=== PATIENT | female | born 1980 ===

== ENCOUNTER 2019-09-19 06:17 | Day surgery (SDC) | payer OTHER | END 2019-09-19 10:44 | disposition home or self-care (01) | LOC: AMB-ENDOS 06:17 | DX: D13.1 Benign neoplasm of stomach (principal); K44.9 Diaphragmatic hernia without obstruction or gangrene ==

== ENCOUNTER 2024-08-08 12:00 | Inpatient (IN) | payer OTHER ==
[~2024-08-08] VITALS: Ht 160 cm; Wt 72.6 kg
[2024-08-08 12:20] LABS: RH POSITIVE
[2024-08-08] MEDS ORDERED: SKYRIZI150 MG/1 M (12:47)
[2024-08-12] MEDS ORDERED: POVIDONE-IODINE 118 ML BOTT TOP SCH (11:45)
[2024-08-12] MEDS ORDERED: CEFAZOLIN SODIUM 1,000 MG VIAL IV SCH ×2 (11:45→18:00)
[2024-08-12] MEDS ORDERED: ONDANSETRON HCL 2 MG/ML VIAL IV PRN (14:00)
[2024-08-12] MEDS ORDERED: MORPHINE SULFATE 4 MG/ML VIAL IV ONE (14:20)
[2024-08-12] MEDS ORDERED: MORPHINE SULFATE 4 MG/ML VIAL IV SCH (16:00)
[2024-08-12] MEDS ORDERED: MORPHINE SULFATE 2 MG,MORPHINE SULFATE 4 MG IV SCH (16:00)
[2024-08-12 16:30] VITALS: BP 125/80
[2024-08-12 19:12] LABS: HEMATOCRIT 34.6 % (36.0-45.00); HEMOGLOBIN 11.5 g/dL (12.0-15.00); MEAN CELL VOLUME 85.5 fL (80.00-100.00); MEAN CORPUSCULAR HEMOGLOBIN 28.5 pg (27.00-32.0); MEAN CORPUSCULAR HGB CONC 33.3 g/dl (32.0-36.0); PLATELET COUNT 313 K/uL (150-450); RED BLOOD COUNT 4.04 M/uL (4.00-6.00); RED CELL DISTRIBUTION WIDTH 16.8 % (11.5-14.5)
[2024-08-13 01:18] VITALS: BP 118/74
[2024-08-13 07:50] VITALS: BP 116/71
[2024-08-13] MEDS ORDERED: IBU800 MG PO (08:13)
[2024-08-13] MEDS ORDERED: NEURONTIN300 MG PO (08:14)
[2024-08-13] MEDS ORDERED: ENOXAPARIN SODIUM 40 MG/0.4 ML SYRINGE SUBCUTANEO SCH (09:00)
== END 2024-08-13 09:13 | disposition home or self-care (01) | DRG 743 ==
LOC: O/R 08-12 06:53 → SURH 08-12 12:00 → OB/GYN 08-12 16:28
PROVIDERS: ADMIT Obstetrics & Gynecology Gynecology; ATTEND Obstetrics & Gynecology Gynecology
PROC: 0UT74ZZ Resection of Bilateral Fallopian Tubes, Percutaneous Endoscopic Approach (ICD-10-PCS; 2024-08-12)
PROC: 0UT94ZZ Resection of Uterus, Percutaneous Endoscopic Approach (ICD-10-PCS; principal; 2024-08-12 12:00)
DX: D25.1 Intramural leiomyoma of uterus (principal); Z20.822 Contact with and (suspected) exposure to COVID-19